=== PATIENT | male | born 2000 | race Caucasian/White ===

== ENCOUNTER → 2024-09-25 08:04 | Outpatient (CLI) | payer BC, SELFPAY ==
--- NOTE | 2024-09-25 08:10 | DI.RAD.S_ITS ---
PROCEDURE: XR CERVICAL SPINE 4V OR 5V INDICATIONS: NECK PAIN TECHNIQUE: 5 views of the cervical spine acquired. COMPARISON: None. FINDINGS: Bones: No fractures or dislocations to the T1 level. Oblique images demonstrate mild bilateral foraminal stenosis at C6-7 level. Soft tissues: No prevertebral soft tissue swelling. IMPRESSION: No cervical spine fracture or dislocation. Suggestion of mild bilateral bony foraminal stenosis seen at C6-7 level on oblique views. Dictated by: Td Parra M.D. on 09/25/2024 at 9:27 Approved by: Td Parra M.D. on 09/25/2024 at 9:28
== END ==
PROVIDERS: Referring Provider Physical Medicine & Rehabilitation; Visit Provider Physical Medicine & Rehabilitation
DX: M54.2 Cervicalgia (principal)
CPT/HCPCS: 72050

== ENCOUNTER → 2024-10-16 09:15 | Outpatient (CLI) | payer BC, SELFPAY ==
--- NOTE | 2024-10-16 09:30 | DI.MRI.S_ITS ---
PROCEDURE: MR CERVICAL SPINE WO CON INDICATIONS: Progressive right-sided axial neck pain TECHNIQUE: Noncontrast sagittal T1 spin echo and T2 fast spin echo, sagittal STIR, foraminal oblique sagittal T2 fast spin echo, and axial gradient echo or T2 fast spin echo through the cervical spine. COMPARISON: None. FINDINGS: Image quality: Excellent. Alignment and Curvature: There is normal bony alignment. Bone Marrow: Marrow demonstrates normal overall signal. Spinal Cord: Visualized spinal cord has normal size and signal. No cerebellar tonsillar herniation. Paraspinous Soft Tissues: No paravertebral masses. Prevertebral soft tissues are normal in thickness. C2-C3: Normal appearance. C3-C4: Normal appearance. C4-C5: Normal appearance. C5-C6: Normal appearance. C6-C7: Normal appearance. C7-T1: Normal appearance. IMPRESSION: Normal MR cervical spine. Dictated by: Jaelyn Wells M.D. on 10/16/2024 at 16:45 Approved by: Jaelyn Wells M.D. on 10/16/2024 at 16:46
== END ==
LOC: MRI 09:17
PROVIDERS: Referring Provider Physical Medicine & Rehabilitation; Visit Provider Physical Medicine & Rehabilitation
DX: M47.22 Other spondylosis with radiculopathy, cervical region (principal)
CPT/HCPCS: 72141